=== PATIENT | female | born 1955 | race African-American/Black ===

== ENCOUNTER 2023-02-14 15:28 | Outpatient (CLI) | payer MEDICARE | END 2023-02-14 15:29 | disposition home or self-care (01) | LOC: CSHMAMMO 15:28 | PROVIDERS: ATTEND Family Medicine | DX: Z12.31 Encounter for screening mammogram for malignant neoplasm of breast (principal) | CPT/HCPCS: 77063; 77067 ==

== ENCOUNTER 2024-02-17 15:13 | Outpatient (CLI) | payer MEDICARE | END 2024-02-17 15:14 | disposition home or self-care (01) | LOC: CSHMAMMO 15:13 | PROVIDERS: ATTEND Family Medicine | DX: Z12.31 Encounter for screening mammogram for malignant neoplasm of breast (principal) | CPT/HCPCS: 77063; 77067 ==